=== PATIENT | female | born 1970 | race Caucasian/White ===

== ENCOUNTER → 2022-05-20 | Day surgery (SDC) | payer BC ==
[~2022-05-20] MED LIST: AMBIEN CR12.5 MG PO; BACTRIM DS TAB1 EACH PO; BENICAR5 MG PO; CALAN 40MG TABL40 MG PO; HYDROCODON-ACE1 EAC2 PO; NAPROXEN 375 M375 MG PO; PROPRANOLOL HCL20 MG PO; QUETIAPINE FUMA25 MG PO; ZOFRAN 4 MG TAB4 MG PO
[2022-05-20 12:39] LABS: HEMOGLOBIN 15.8 gm/dl (12.3-15.3); RED BLOOD COUNT 4.68 M/UL (4.00-5.10); WHITE BLOOD COUNT 10.4 K/UL (4.5-11.0)
[2022-05-20 13:11] LABS: BUN/CREATININE RATIO 27 (0-10)
== END | disposition home or self-care (01) ==
LOC: OR 11:27
PROVIDERS: Obstetrics & Gynecology
DX: N76.4 Abscess of vulva (principal); Z72.0 Tobacco use
CPT/HCPCS: 36415; 71045; 80053; 81001; 85025; 87070; 87077; 87186; 87205; 93005; J0690; J1100; J1170; J1885; J2001; J2250; J2370; J2405; J2704; J2795; J3010